=== PATIENT | female | born 1970 | race Caucasian/White ===

== ENCOUNTER → 2017-07-10 | Outpatient (CLI) | payer OTHER ==
[~2017-07-10] MED LIST: ALBUTEROL0.09 MG/A2 IH; FLEXERIL10 MG PO; MOTRIN800 MG PO; ZITHROMAX Z PA250 MG PO
--- NOTE | ~2017-07-10 | EKG ---
[place], [place] ELECTROCARDIOGRAM REPORT NAME: [facility] UNIT #: [id number] ROOM: DOCTOR: INGEL HALL,TOBIN BIRTHDATE: [birth year] DOS: 07/10/2017 TIME: 1445 hours. IMPRESSION: 1. Sinus rhythm. 2. Poor R-wave progression consistent of old anteroseptal myocardial infarction. TOBIN MANNING MD CM:EKGRPT:ELECTROCARDIOGRAM REPORT [id number] TOBIN MANNING MD
== END | disposition home or self-care (01) ==
LOC: CARD 14:18
DX: F90.9 Attention-deficit hyperactivity disorder, unspecified type (principal)

== ENCOUNTER 2020-05-27 15:29 | Inpatient (IN) | payer OTHER ==
[~2020-05-27] VITALS: Ht 170.2 cm; Wt 57.2 kg
[2020-05-27 15:43] VITALS: BP 132/73
[2020-05-27 16:55] LABS: MEAN CORPUSCULAR HGB 28.8 pg (27.0-31.0); MEAN PLATELET VOLUME 9.5 fl (9.6-12.3); PLATELET COUNT AUTOMATED 390 10*3/uL (130-400); RED BLOOD COUNT 3.89 10*6/uL (4.10-5.10); WHITE BLOOD COUNT 32.7 10*3/uL (4.8-10.8)
[2020-05-27 17:14] LABS: ACT PARTIAL THROMBO TIME 28.7 SECONDS (20.0-32.1); INTERNATIONAL NORM RATIO 1.2 (2.0-3.5)
[2020-05-27 17:17] LABS: ALBUMIN 2.8 gm/dl (3.1-4.5); ALKALINE PHOSPHATASE 131 U/L (45-117); BUN 12 mg/dl (7-24); CHLORIDE 96 mmol/L (98-107); CREATININE 0.46 mg/dL (0.55-1.02); LIPASE 17 U/L (73-393); SGOT/AST 11 IU/L (3-35); SGPT/ALT 19 U/L (12-78); SODIUM 133 mmol/L (136-145); TOTAL PROTEIN 6.9 gm/dL (6.4-8.2); TROPONIN I 0.028 ng/ml (<0.045)
[2020-05-27 17:22] LABS: PLATELET SUFFICIENCY NORMAL (NORMAL); TOTAL CELLS COUNTED 100 #CELLS
[2020-05-27 18:30] VITALS: BP 137/75
--- NOTE | 2020-05-27 18:57 | NUR ---
NURSE RPEORT TO ARIC ATKINSON, FOR CONTINUATION OF CARE.
[2020-05-27 22:22] VITALS: BP 138/75
[2020-05-27 22:57] VITALS: BP 132/71
--- NOTE | 2020-05-27 23:30 | NUR ---
A 49, admitted to 4E, under the services of CHLOE Romeo DO with a diagnosis of SUSPECTED COVID/SEPSIS/PNEUMONIA. Chief complaint is MULTIPLE COMPLAINTS. Patient arrived via stretcher from ER. Monitor applied. Initial assessment completed. Vital signs taken and recorded. CHLOE ROMEO DO notified of admission to the unit. Orders received. See assessment for past medical history, medications and allergies. Patient and/or family oriented to unit. visitation policy reviewed. Clothing/patient valuable form completed. ISIDRA LOZA A
[2020-05-28] VITALS: BP 143/71; BP 149/71
--- NOTE | 2020-05-28 03:18 | NUR ---
CHART CHECK COMPLETE.
[2020-05-28 04:00] VITALS: BP 126/52
[2020-05-28 06:58] LABS: BASO % 0.2 % (0.0-1.0); EOS % 0.1 % (1.0-4.0); HEMATOCRIT 32.8 % (37.0-47.0); LYMPH # 2.1 10*3/uL (1.3-4.4); LYMPH % 9.9 % (27.0-41.0); MEAN CELL VOLUME 91.6 fl (81.0-99.0); MEAN CORPUSCULAR HGB 29.3 pg (27.0-31.0); MEAN PLATELET VOLUME 9.7 fl (9.6-12.3); MONO # 1.1 10*3/uL (0.1-1.0); MONO % 5.2 % (3.0-9.0); NEUT # 17.9 10*3/uL (2.3-7.9); NEUT % 83.8 % (47.0-73.0); PLATELET COUNT AUTOMATED 365 10*3/uL (130-400); RED BLOOD COUNT 3.58 10*6/uL (4.10-5.10); RED CELL DISTRI WIDTH 14.2 % (0-14.5); WHITE BLOOD COUNT 21.4 10*3/uL (4.8-10.8)
[2020-05-28 07:10] LABS: ALBUMIN 2.3 gm/dl (3.1-4.5); ALKALINE PHOSPHATASE 116 U/L (45-117); BUN 7 mg/dl (7-24); CHLORIDE 104 mmol/L (98-107); CHOLESTEROL 107 mg/dL (<200); CPK 16 U/L (26-192); HDL CHOLESTEROL 21 mg/dl (40-60); LDL CHOLESTEROL 73 mg/dL (9-159); POTASSIUM 3.8 mmol/L (3.5-5.1); SGOT/AST 14 IU/L (3-35); SGPT/ALT 18 U/L (12-78); SODIUM 136 mmol/L (136-145); TOTAL PROTEIN 6.1 gm/dL (6.4-8.2); TRIGLYCERIDES 65 mg/dl (<150); VLDL CHOLESTEROL 13 mg/dL (6-40)
[2020-05-28 07:15] LABS: THYROID STIM HORMONE (HS) 0.175 uIU/ml (0.358-4.75)
[2020-05-28 07:30] LABS: INTERNATIONAL NORM RATIO 1.2 (2.0-3.5)
[2020-05-28 08:00] VITALS: BP 150/73
--- NOTE | 2020-05-28 09:34 | NUR ---
SPEECH PATHOLOGY Nursing screen complete. There are no reports of acute communication or swallowing difficulty therefore speech pathology services are not indicated at this time. This dept. will remain available if future needs arise. BERNARDO CORDOBA MS[employer]-CERTIFIED CONTROL SYSTEMS TECHNICIAN
--- NOTE | 2020-05-28 10:29 | NUR ---
DR BACA ON FLOOR, NOTIFIED HIM THAT PATIENT IS DROWSY/LETHARGIC. HE STATED HE ORDERED ABG'S ON HER AND THAT SHE HAD A RESTORIL LAST NIGHT THAT MAY BE THE REASON WHY SHE IS DROWSY/LETHARGIC. WILL CONTINUE TO MONITOR PATIENT CLOSELY. IV ABX RUNNING. VITALS STABLE. RESPIRATIONS EASY, REGULAR, NO DISTRESS NOTED. CALL LIGHT WITHIN REACH.
[2020-05-28 10:59] LABS: ABG BASE EXCESS 4.7 mmol/L (-2.0-2.0); ARTERIAL BLOOD GAS PH 7.435 (7.35-7.45)
--- NOTE | 2020-05-28 11:09 | NUR ---
MAGGIE FULTON. PLACED PT ON 3LNC FOR LOW PO2. RN AND NOTIFIED
--- NOTE | 2020-05-28 11:45 | NUR ---
NOTIFIED DR GOLDMAN OF CONSULT. HE STATED TO DO MORE BLOOD GASES IN 2 HOURS AT 1345.
[2020-05-28 12:00] VITALS: BP 147/76
[2020-05-28 14:05] LABS: ABG BASE EXCESS 4.7 mmol/L (-2.0-2.0); ARTERIAL BLOOD GAS PH 7.434 (7.35-7.45)
--- NOTE | 2020-05-28 15:49 | NUR ---
SPOKE WITH DR GOLDMAN, NOTIFIED HIM OF MOST RECENT ABG'S. HE STATED TO PUT IN ABG ORDERS FOR THE MORNING OF 05/29/2020. NO FURTHER ORDERS.
[2020-05-28 16:00] VITALS: BP 142/76
[2020-05-28 20:00] VITALS: BP 127/67
--- NOTE | 2020-05-28 22:30 | NUR ---
ASSUMED CARE OF PATIENT. ASSESSMENT IS COMPLETE. RESPERS SHALLOW AND REGULAR ON 3L VIA NC. BED IS LOW, LOCKED, AND CALL LIGHT IS WITHIN REACH. PRN NORCO AND COUGH DROP GIVEN FOR C/O RIB/BACK PAIN RATING A 5/10 AND COUGH. WILL MONITOR EFFECT. SEE INTERVENTIONS.
--- NOTE | 2020-05-28 23:30 | NUR ---
PRN NORCO EFFECTIVE PER PATIENT. CALL LIGHT IS WITHIN REACH.
[2020-05-29] VITALS: BP 158/94
--- NOTE | 2020-05-29 02:00 | NUR ---
SLEEPING, RESPERS EASY AND REGULAR. CALL LIGHT IS WITHIN REACH.
--- NOTE | 2020-05-29 05:24 | NUR ---
CHART CHECK COMPLETE.
[2020-05-29 05:50] LABS: ALBUMIN 2.3 gm/dl (3.1-4.5); ALKALINE PHOSPHATASE 118 U/L (45-117); BUN 8 mg/dl (7-24); CHLORIDE 103 mmol/L (98-107); CREATININE 0.37 mg/dL (0.55-1.02); LDH 135 U/L (84-246); POTASSIUM 3.6 mmol/L (3.5-5.1); SGOT/AST 11 IU/L (3-35); SGPT/ALT 17 U/L (12-78); SODIUM 139 mmol/L (136-145); TOTAL PROTEIN 5.8 gm/dL (6.4-8.2)
[2020-05-29 06:04] LABS: BASO # 0.1 10*3/uL (0.0-0.1); BASO % 0.4 % (0.0-1.0); EOS # 0.1 10*3/uL (0.0-0.4); EOS % 0.8 % (1.0-4.0); HEMATOCRIT 35.5 % (37.0-47.0); LYMPH # 2.7 10*3/uL (1.3-4.4); LYMPH % 18.5 % (27.0-41.0); MEAN CELL VOLUME 89.2 fl (81.0-99.0); MEAN CORPUSCULAR HGB 29.1 pg (27.0-31.0); MEAN CORPUSCULAR HGB CONC 32.7 g/dl (33.0-37.0); MONO # 0.8 10*3/uL (0.1-1.0); MONO % 5.7 % (3.0-9.0); NEUT # 10.5 10*3/uL (2.3-7.9); NEUT % 73.1 % (47.0-73.0); PLATELET COUNT AUTOMATED 434 10*3/uL (130-400); RED BLOOD COUNT 3.98 10*6/uL (4.10-5.10); RED CELL DISTRI WIDTH 14.2 % (0-14.5); WHITE BLOOD COUNT 14.4 10*3/uL (4.8-10.8)
[2020-05-29 07:37] LABS: ABG BASE EXCESS 5.9 mmol/L (-2.0-2.0); ARTERIAL BLOOD GAS PH 7.443 (7.35-7.45)
[2020-05-29 08:00] VITALS: BP 155/84
--- NOTE | 2020-05-29 08:16 | NUR ---
PT MEDICATED WITH PRN NORCO FOR C/O CHEST DISCOMFORT FROM COUGH. WILL MONITOR.
--- NOTE | 2020-05-29 09:00 | NUR ---
Aesthetician in to talk to patient. Patient states lives at home with family. There are 4 steps in the home. Physician: colin lindquist Pharmacy: [facility] health services: none Patient's level of ADLs: INDEPENDENT Patient has working utilities: all working DME: none Follow-up physician's appointment after d/c: will be made by hospitalist nurse director upon discharge Does patient want to access PORTAL?: no Discharge plan discussed with patient by phone, she states she lives at home with family, she is independent in adls and ambulation,, she states she will return home when discharged and denies any home needs at this time, case management will follow. KARISSA SIMS
--- NOTE | 2020-05-29 09:00 | NUR ---
PRN NORCO EFFECTIVE PER PT.
[2020-05-29 12:00] VITALS: BP 156/82
--- NOTE | 2020-05-29 13:51 | NUR ---
PT MEDICATED WITH PRN NORCO FOR C/O CHEST DISCOMFORT WITH COUGH. WILL MONITOR.
--- NOTE | 2020-05-29 14:29 | NUR ---
PRN NORCO EFFECTIVE PER PT.
[2020-05-29 16:00] VITALS: BP 119/70
[2020-05-29 20:00] VITALS: BP 139/73
[2020-05-30] VITALS: BP 141/71
[2020-05-30 06:11] LABS: ALBUMIN 2.4 gm/dl (3.1-4.5); ALKALINE PHOSPHATASE 110 U/L (45-117); BASO % 0.2 % (0.0-1.0); BUN 8 mg/dl (7-24); CHLORIDE 107 mmol/L (98-107); CREATININE 0.42 mg/dL (0.55-1.02); HEMATOCRIT 34.9 % (37.0-47.0); LDH 186 U/L (84-246); LYMPH # 1.6 10*3/uL (1.3-4.4); LYMPH % 15.3 % (27.0-41.0); MEAN CELL VOLUME 88.6 fl (81.0-99.0); MEAN CORPUSCULAR HGB 28.4 pg (27.0-31.0); MEAN CORPUSCULAR HGB CONC 32.1 g/dl (33.0-37.0); MEAN PLATELET VOLUME 9.9 fl (9.6-12.3); MONO # 0.4 10*3/uL (0.1-1.0); NEUT # 8.5 10*3/uL (2.3-7.9); NEUT % 79.9 % (47.0-73.0); PLATELET COUNT AUTOMATED 449 10*3/uL (130-400); POTASSIUM 3.9 mmol/L (3.5-5.1); RED BLOOD COUNT 3.94 10*6/uL (4.10-5.10); RED CELL DISTRI WIDTH 13.9 % (0-14.5); SGOT/AST 9 IU/L (3-35); SGPT/ALT 16 U/L (12-78); SODIUM 139 mmol/L (136-145); TOTAL PROTEIN 6.3 gm/dL (6.4-8.2); WHITE BLOOD COUNT 10.6 10*3/uL (4.8-10.8)
[2020-05-30 08:00] VITALS: BP 166/87
--- NOTE | 2020-05-30 08:14 | NUR ---
Openly coughing w/o covering mouth, spitting mucous yellow mucous into trash can. C/o pain to ribs "from coughing" declined to scale. Medicated. see E-mar.
--- NOTE | 2020-05-30 09:48 | NUR ---
CALLED REGARDING PATIENT CONTINUES TO C/O "LUNG/RIB" PAIN. NORCO INEFFECTIVE. STATES HE WILL REVIEW.
--- NOTE | 2020-05-30 10:45 | NUR ---
PATIENT MEDICATED WITH TORADOL PER ONE TIME ORDER. WILL CONTINUE TO MONITOR.
[2020-05-30 12:00] VITALS: BP 131/68
[2020-05-30] MEDS ORDERED: OMNICEF300 MG PO (15:20)
[2020-05-30] MEDS ORDERED: ZITHROMAX250 MG PO (15:20)
--- NOTE | 2020-05-30 15:50 | NUR ---
PATIENT LEFT AGAINST MEDICAL ADVICE. CALLED AND NOTIFIED. IV REMOVED. HUMAN RESOURCES GENERALIST NOTIFIED.
== END 2020-05-30 15:50 | disposition left against medical advice (07) | DRG 871 ==
LOC: ED 15:29 → 4E 22:20 → EDHOLD 22:20 → 4E 22:35
PROVIDERS: Internal Medicine Critical Care Medicine; Nurse Practitioner Family; Student in an Organized Health Care Education/Training Program; ADMIT Emergency Medicine
DX: A41.9 Sepsis, unspecified organism (principal); J18.9 Pneumonia, unspecified organism; J96.01 Acute respiratory failure with hypoxia; J96.02 Acute respiratory failure with hypercapnia; E44.0 Moderate protein-calorie malnutrition; E87.1 Hypo-osmolality and hyponatremia; J44.0 Chronic obstructive pulmonary disease with (acute) lower respiratory infection; J44.1 Chronic obstructive pulmonary disease with (acute) exacerbation; E87.3 Alkalosis; J90 Pleural effusion, not elsewhere classified; E87.8 Other disorders of electrolyte and fluid balance, not elsewhere classified; D64.9 Anemia, unspecified; M94.0 Chondrocostal junction syndrome [Tietze]; R73.9 Hyperglycemia, unspecified; E55.9 Vitamin D deficiency, unspecified; Z53.29 Procedure and treatment not carried out because of patient's decision for other reasons; F17.210 Nicotine dependence, cigarettes, uncomplicated; Z20.828 Contact with and (suspected) exposure to other viral communicable diseases; Z71.6 Tobacco abuse counseling; Z90.710 Acquired absence of both cervix and uterus; Z88.0 Allergy status to penicillin; Z82.49 Family history of ischemic heart disease and other diseases of the circulatory system; Z88.8 Allergy status to other drugs, medicaments and biological substances

== ENCOUNTER 2022-04-15 18:08 | Inpatient (IN) | payer OTHER ==
[~2022-04-15] VITALS: Ht 170.2 cm; Wt 60.8 kg
[~2022-04-15 18:08] MED LIST changes: +OMNICEF300 MG PO; +ZITHROMAX250 MG PO
[2022-04-15 18:13] VITALS: BP 103/83
[2022-04-15 19:11] VITALS: BP 99/75
[2022-04-15 19:23] LABS: BASO % 0.1 % (0.0-1.0); HEMATOCRIT 44.4 % (37.0-47.0); LYMPH # 0.9 10*3/uL (1.3-4.4); LYMPH % 5.8 % (27.0-41.0); MEAN CELL VOLUME 94.5 fl (81.0-99.0); MEAN CORPUSCULAR HGB 29.1 pg (27.0-31.0); MEAN CORPUSCULAR HGB CONC 30.9 g/dl (33.0-37.0); MEAN PLATELET VOLUME 10.3 fl (9.6-12.3); MONO # 1.3 10*3/uL (0.1-1.0); MONO % 8.1 % (3.0-9.0); NEUT # 13.4 10*3/uL (2.3-7.9); NEUT % 85.7 % (47.0-73.0); PLATELET COUNT AUTOMATED 168 10*3/uL (130-400); RED CELL DISTRI WIDTH 13.7 % (0-14.5); WHITE BLOOD COUNT 15.7 10*3/uL (4.8-10.8)
[2022-04-15 19:37] LABS: INTERNATIONAL NORM RATIO 1.1 (2.0-3.5)
[2022-04-15 19:40] LABS: ALKALINE PHOSPHATASE 98 U/L (45-117); BUN 20 mg/dl (7-24); CHLORIDE 103 mmol/L (98-107); CPK 265 U/L (26-192); POTASSIUM 4.6 mmol/L (3.5-5.1); SGOT/AST 70 IU/L (3-35); SGPT/ALT 50 U/L (12-78); SODIUM 140 mmol/L (136-145); TOTAL PROTEIN 7.3 gm/dL (6.4-8.2)
[2022-04-15 19:41] LABS: ETHYL ALCOHOL < 3.0 mg/dl (<3)
[2022-04-15 20:12] LABS: BILIRUBIN Negative (Negative); BLOOD Negative (Negative); CLARITY Cloudy (Clear); COLOR Yellow (Yellow); GLUCOSE 3+ (Negative); KETONE Negative (Negative); LEUKO ESTERASE Negative (Negative); NITRITE Negative (Negative); UROBILINOGEN 0.2 E.U./dl (0.0-1.0)
[2022-04-15 20:17] LABS: BACTERIA 3+; HYALINE CAST 16-20; MUCOUS 2+
[2022-04-15 20:18] LABS: RBC 0-2 rbc/hpf (0-2)
[2022-04-15 20:23] LABS: URINE AMPHETAMINES > 1000 (1000ng/ml); URINE BARBITURATES < 200 (200ng/ml); URINE BENZODIAZEPINES < 200 (200ng/ml); URINE CANNABINOIDS (THC) < 50 (50ng/ml); URINE COCAINE < 300 (300ng/ml); URINE METHADONE < 300 (300ng/ml); URINE OPIATES < 300 (300ng/ml)
[2022-04-15 20:25] LABS: URINE PHENCYCLIDINE < 25 (25ng/ml)
[2022-04-15 21:04] VITALS: BP 115/77
[2022-04-16] VITALS (7 sets, daily range): BP systolic 127–174; BP diastolic 74–96
[2022-04-16 07:13] LABS: BASO % 0.1 % (0.0-1.0); EOS % 0.1 % (1.0-4.0); LYMPH # 2.1 10*3/uL (1.3-4.4); LYMPH % 15.4 % (27.0-41.0); MEAN CELL VOLUME 95.1 fl (81.0-99.0); MEAN CORPUSCULAR HGB 29.5 pg (27.0-31.0); MEAN PLATELET VOLUME 10.2 fl (9.6-12.3); MONO % 7.6 % (3.0-9.0); NEUT # 10.5 10*3/uL (2.3-7.9); NEUT % 76.5 % (47.0-73.0); PLATELET COUNT AUTOMATED 145 10*3/uL (130-400); RED BLOOD COUNT 4.31 10*6/uL (4.10-5.10); RED CELL DISTRI WIDTH 13.9 % (0-14.5); WHITE BLOOD COUNT 13.7 10*3/uL (4.8-10.8)
[2022-04-16 07:32] LABS: ALKALINE PHOSPHATASE 79 U/L (45-117); BUN 16 mg/dl (7-24); CHLORIDE 108 mmol/L (98-107); CHOLESTEROL 116 mg/dL (<200); CREATININE 0.63 mg/dL (0.55-1.02); LDL CHOLESTEROL 43 mg/dL (9-159); POTASSIUM 4.4 mmol/L (3.5-5.1); SGOT/AST 59 IU/L (3-35); SGPT/ALT 50 U/L (12-78); SODIUM 139 mmol/L (136-145); TOTAL PROTEIN 5.9 gm/dL (6.4-8.2); TRIGLYCERIDES 38 mg/dl (<150)
[2022-04-16 07:38] LABS: THYROID STIM HORMONE (HS) 0.096 uIU/ml (0.358-4.75)
[2022-04-16] MEDS ORDERED: SUBOXONE 8 MG-1 EACH SL (20:16)
[2022-04-16] MEDS ORDERED: BUPROPION HCL150 M1 PO (20:18)
[2022-04-17] VITALS: BP 171/82
[2022-04-17 06:10] LABS: BASO # 0.1 10*3/uL (0.0-0.1); BASO % 0.5 % (0.0-1.0); EOS # 0.1 10*3/uL (0.0-0.4); EOS % 0.9 % (1.0-4.0); HEMATOCRIT 39.2 % (37.0-47.0); LYMPH # 2.2 10*3/uL (1.3-4.4); LYMPH % 20.4 % (27.0-41.0); MEAN CORPUSCULAR HGB 29.7 pg (27.0-31.0); MEAN CORPUSCULAR HGB CONC 33.2 g/dl (33.0-37.0); MEAN PLATELET VOLUME 11.6 fl (9.6-12.3); MONO # 0.7 10*3/uL (0.1-1.0); MONO % 6.2 % (3.0-9.0); NEUT # 7.9 10*3/uL (2.3-7.9); NEUT % 71.8 % (47.0-73.0); PLATELET COUNT AUTOMATED 156 10*3/uL (130-400); RED BLOOD COUNT 4.37 10*6/uL (4.10-5.10); RED CELL DISTRI WIDTH 13.6 % (0-14.5); WHITE BLOOD COUNT 10.9 10*3/uL (4.8-10.8)
[2022-04-17 06:11] LABS: BUN 9 mg/dl (7-24); CHLORIDE 110 mmol/L (98-107); CREATININE 0.53 mg/dL (0.55-1.02); POTASSIUM 3.6 mmol/L (3.5-5.1); SODIUM 140 mmol/L (136-145)
[2022-04-17 06:41] LABS: MEAN CELL VOLUME 89.7 fl (81.0-99.0)
[2022-04-17 08:00] VITALS: BP 150/90
[2022-04-17 12:00] VITALS: BP 143/78
[2022-04-17 16:00] VITALS: BP 155/83
[2022-04-17 20:00] VITALS: BP 156/82
[2022-04-18] VITALS: BP 151/76
[2022-04-18 06:02] LABS: BUN 9 mg/dl (7-24); CHLORIDE 110 mmol/L (98-107); CREATININE 0.56 mg/dL (0.55-1.02); POTASSIUM 4.1 mmol/L (3.5-5.1); SODIUM 144 mmol/L (136-145)
[2022-04-18 06:05] LABS: FREE T4 1.11 ng/dl (0.76-1.46)
[2022-04-18 06:08] LABS: BASO # 0.1 10*3/uL (0.0-0.1); BASO % 0.7 % (0.0-1.0); EOS # 0.2 10*3/uL (0.0-0.4); EOS % 2.7 % (1.0-4.0); LYMPH # 2.9 10*3/uL (1.3-4.4); LYMPH % 38.8 % (27.0-41.0); MEAN CELL VOLUME 88.6 fl (81.0-99.0); MEAN CORPUSCULAR HGB 28.4 pg (27.0-31.0); MEAN CORPUSCULAR HGB CONC 32.1 g/dl (33.0-37.0); MEAN PLATELET VOLUME 10.6 fl (9.6-12.3); MONO # 0.5 10*3/uL (0.1-1.0); NEUT # 3.8 10*3/uL (2.3-7.9); NEUT % 50.7 % (47.0-73.0); PLATELET COUNT AUTOMATED 169 10*3/uL (130-400); RED CELL DISTRI WIDTH 13.7 % (0-14.5); WHITE BLOOD COUNT 7.4 10*3/uL (4.8-10.8)
[2022-04-18 08:00] VITALS: BP 142/80
[2022-04-18 12:00] VITALS: BP 154/102
[2022-04-18] MEDS ORDERED: VITAMIN D350 MC2 PO (12:39)
[2022-04-18] MEDS ORDERED: DOXYCYCLINE HY100 M3 PO (12:39)
== END 2022-04-18 13:50 | disposition home health service (06) | DRG 177 ==
LOC: ED 18:08 → 4E 23:28 → EDHOLD 23:28 → 4E 04-16 01:28
PROVIDERS: Family Medicine; Internal Medicine; Physician Assistant; ADMIT Family Medicine; ATTEND Family Medicine
DX: J69.0 Pneumonitis due to inhalation of food and vomit (principal); N17.0 Acute kidney failure with tubular necrosis; E87.2 Acidosis; E87.1 Hypo-osmolality and hyponatremia; E86.0 Dehydration; E16.2 Hypoglycemia, unspecified; F15.10 Other stimulant abuse, uncomplicated; E55.9 Vitamin D deficiency, unspecified; Z88.0 Allergy status to penicillin; Z88.8 Allergy status to other drugs, medicaments and biological substances; Z90.710 Acquired absence of both cervix and uterus; Z82.49 Family history of ischemic heart disease and other diseases of the circulatory system

== ENCOUNTER 2022-09-19 19:33 | Emergency (ER) | payer OTHER ==
[~2022-09-19 19:33] MED LIST changes: +BUPROPION HCL150 M1 PO; +DOXYCYCLINE HY100 M3 PO; +SUBOXONE 8 MG-1 EACH SL; +VITAMIN D350 MC2 PO
== END 2022-09-19 21:51 | disposition home or self-care (01) ==
LOC: ED 19:33
DX: S01.81XA Laceration without foreign body of other part of head, initial encounter (principal); M54.2 Cervicalgia; Z88.0 Allergy status to penicillin; Z88.8 Allergy status to other drugs, medicaments and biological substances; Z90.710 Acquired absence of both cervix and uterus; F17.200 Nicotine dependence, unspecified, uncomplicated; W18.39XA Other fall on same level, initial encounter; Y93.89 Activity, other specified; Y92.89 Other specified places as the place of occurrence of the external cause; Y99.8 Other external cause status

== ENCOUNTER 2024-07-27 19:33 | Emergency (ER) | payer OTHER ==
[~2024-07-27] VITALS: Ht 170.1 cm; Wt 56.2 kg
[2024-07-27] MEDS ORDERED: LEVOFLOXACIN750 M2 PO (20:59)
[2024-07-27] MEDS ORDERED: LEVOFLOXACIN 750 MG TAB PO ONE (21:00)
== END 2024-07-27 21:17 | disposition home or self-care (01) ==
LOC: ED 19:33
DX: J18.9 Pneumonia, unspecified organism (principal); Z20.822 Contact with and (suspected) exposure to COVID-19; E83.41 Hypermagnesemia; J44.9 Chronic obstructive pulmonary disease, unspecified; F17.210 Nicotine dependence, cigarettes, uncomplicated; F15.10 Other stimulant abuse, uncomplicated; Z88.0 Allergy status to penicillin; Z88.6 Allergy status to analgesic agent; Z90.710 Acquired absence of both cervix and uterus

== ENCOUNTER → 2025-06-05 | Outpatient (CLI) | payer OTHER ==
[~2025-06-05] MED LIST changes: +LEVOFLOXACIN750 M2 PO
== END | disposition home or self-care (01) ==
LOC: RAD 14:05
PROVIDERS: ATTEND Physician Assistant
DX: J40 Bronchitis, not specified as acute or chronic (principal); J44.9 Chronic obstructive pulmonary disease, unspecified

== ENCOUNTER 2025-07-05 23:50 | Emergency (ER) | payer OTHER ==
[~2025-07-05] VITALS: Ht 170.1 cm; Wt 59.9 kg
[2025-07-06] MEDS ORDERED: Tdap Vaccine 0.5 ML SYR (Adult Vaccine) IM ONE (00:10)
[2025-07-06] MEDS ORDERED: ZITHROMAX250 MG PO (01:03)
[2025-07-06] MEDS ORDERED: PREDNISONE20 M1 PO (01:03)
[2025-07-06] MEDS ORDERED: Bacitracin Zinc 14 GM TUBE T ONE (01:05)
[2025-07-06] MEDS ORDERED: Water, Sterile 10 ML VIAL ONE (01:28)
== END 2025-07-06 01:15 | disposition home or self-care (01) ==
LOC: ED 23:50
DX: S91.332A Puncture wound without foreign body, left foot, initial encounter (principal); J40 Bronchitis, not specified as acute or chronic; J44.9 Chronic obstructive pulmonary disease, unspecified; F17.210 Nicotine dependence, cigarettes, uncomplicated; Z90.710 Acquired absence of both cervix and uterus; Z88.0 Allergy status to penicillin; Z88.5 Allergy status to narcotic agent; Z88.6 Allergy status to analgesic agent; W22.8XXA Striking against or struck by other objects, initial encounter; Y93.89 Activity, other specified; Y92.89 Other specified places as the place of occurrence of the external cause; Y99.8 Other external cause status